=== PATIENT | female | born 1995 | race Caucasian/White ===

== ENCOUNTER 2020-05-06 22:13 | Emergency (ER) | payer OTHER, SELFPAY ==
[2020-05-06 22:22] VITALS: BP 133/89; PULSE 126; RESP 16; TEMP 36.9; O2SAT 100; BMI 19.1
[2020-05-06 22:31] LABS: RBC Urine None Seen (0-5/HPF)
[2020-05-06 22:38] LABS: Bacteria Urine Few (2-10); Culture Indicated Urine Specimen Cultured; Squamous Epithelial Cell Urine 0-1 /HPF (0-5/HPF); WBC Urine 1-5/HPF (0-5/HPF)
--- NOTE | 2020-05-06 23:12 | ED_ITS ---
HPI - General Adult General Chief complaint: Urogenital-Female Stated complaint: thinks UTI Time Seen by Provider: 05/06/20 22:17 Source: patient Mode of arrival: Ambulatory Limitations: no limitations History of Present Illness HPI narrative: 25-year-old female here for evaluation of dysuria, urinary frequency and feeling like she 68 urinary tract infection. Patient states that her symptoms actually started several weeks ago. She was initially seen in outside facility and had a urinalysis performed and was told that she had a urinary tract infection. She was started on Bactrim however after 1 or 2 doses of this she stated that she was not tolerating the medication well. She went back to this outside facility where again she she states that she had a urinalysis performed which did not show urinary tract infection however she states that the provider reviewed the urine culture from her 1st visit and she was told that she had infection. She was started on Keflex. She took this antibiotic for 5 days. States that she started to feel like the symptoms were improving however when she stopped the antibiotic the symptoms returned. She went back to the outside facility where she was told that potentially she had chlamydia. She was given a prescription for azithromycin however because she states she is not concerned about a STI. Here for continued symptoms rate Related Data Previous Rx's Medication Instructions Recorded cephalexin [Keflex] 500 mg PO BID 7 Days #14 cap 05/06/20 Allergies Allergy/AdvReac Type Severity Reaction Status Date / Time No Known Drug Allergies Allergy Verified 05/06/20 22:38 Review of Systems Constitutional Constitutional: Denies fever(s) and Denies headache(s) ENT Ears, Nose, Mouth, and Throat: Denies headache(s) Cardiovascular Cardiovascular: Denies chest pain Genitourinary Genitourinary: Reports dysuria, Reports urinary hesitancy and Reports urinary urgency Genitourinary: Reports dysuria, Reports urinary hesitancy and Reports urinary urgency Integumentary/Breasts Skin/Breast: Denies rash Neurologic Neurologic: Denies headache(s) Hematologic/Lymphatic Hematologic/Lymphatic: Denies easy bleeding and Denies easy bruising Patient History Medical History Healthy adult (Acute) Social History Smoking Status: Never smoker Smoking Status: Never smoker alcohol intake frequency: a few times a week Substance Use Type: does not use Exam Initial Vital Signs Initial Vital Signs: Vital Signs Temperature 98.4 F 05/06/20 22:22 Pulse Rate 126 H 05/06/20 22:22 Respiratory Rate 16 05/06/20 22:22 Blood Pressure 133/89 05/06/20 22:22 Pulse Oximetry 100 05/06/20 22:22 Const General: cooperative and comfortable Limitations: mental status not altered HENMT Head: normal to inspection and normocephalic Cardio Rate: tachycardic Skin Lesions: no lesions Rashes: no rashes Neuro General: patient alert and patient awake Cognition: normal cognition Speech: speech normal Extrem General: normal to inspection Course Orders Ordered: ED Orders 05/06/20 22:19 Chlamydia Gonorrhea PCR -URINE Stat Urine Culture Stat Urine Microscopic Stat Discontinued Medications Cephalexin HCl (Keflex) 500 mg PO NOW ONE Stop: 05/06/20 23:44 Last Admin: 05/06/20 23:46 Dose: 500 mg Documented by: KGALLAG Vital Signs Vital signs: Vital Signs - 8 hr 05/06/20 22:22 05/06/20 23:50 Temperature 98.4 F Pulse Rate 126 H 109 H Respiratory Rate 16 16 Blood Pressure 133/89 136/102 H Pulse Oximetry 100 100 Medical Decision Making Lab Data Lab results reviewed: Yes I reviewed the patient's lab results. Labs: Lab Results 05/06/20 05/06/20 Range/Units 22:19 22:19 Urine RBC None seen (0-5/HPF) Urine WBC 1-5/hpf (0-5/HPF) Ur Squamous Epith Cells 0-1 /hpf (0-5/HPF) Urine Bacteria Few (2-10) H (None) Ur Culture Indicated? Specimen cultured Ur Chlamydia DNA (PCR) Not detected N gonorrhoeae DNA (PCR) Not detected Point of Care Testing Test Results Negative Urine Dip Bedside Urine Glucose 100 mg/dl Bedside Urine Bilirubin - Negative Bedside Urine Ketone - Negative Urine Specific [place] 1.005 Bedside Urine Occult Blood +/- Bedside Urine pH 6.5 Bedside Urine Protein - Negative Bedside Urine Urobilinogen - Negative Bedside Urine Nitrite - Negative Bedside Urine Leukocytes +/- 15 Esterase Point of care testing: Point of Care Testing Test Results Negative Urine Dip Bedside Urine Glucose 100 mg/dl Bedside Urine Bilirubin - Negative Bedside Urine Ketone - Negative Urine Specific [place] 1.005 Bedside Urine Occult Blood +/- Bedside Urine pH 6.5 Bedside Urine Protein - Negative Bedside Urine Urobilinogen - Negative Bedside Urine Nitrite - Negative Bedside Urine Leukocytes +/- 15 Esterase MDM Narrative Medical decision making narrative: I was able to obtain records from her last ED visit where she was given a prescription for the azithromycin. Unfortunately no urine culture or urinalysis results were included in this note. It appears that she did have a gonorrhea and chlamydia test performed however this was also not included in the note. Patient's urinalysis here in the emergency department today does have bacteria and she is having symptoms that are consistent with the UTI. Patient again is convinced that she does not have gonorrhea and chlamydia. With her approval a gonorrhea and chlamydia test was performed which of initially came back negative. It is possible that her urinalysis today is not as convincing has what it could be because she has been on antibiotics. She stated that she did improve after taking the Keflex but then it returned when she completed the course. Plan will be is to place her on a another course of Keflex this time given her 7 days worth of the medication. She is going to hold on the azithromycin. She was given return precautions and follow-up instructions. She expressed understanding and agreement plan. Discharge Plan Departure Patient Disposition: Home Clinical Impression: Dysuria Discharge Date/Time: 05/06/20 23:50 Instructions: DI for Dysuria -- Adult Activity Restrictions/Additional Instructions: A urine culture and a gonorrhea and chlamydia culture were pending at the time of your discharge. You were given a dose of antibiotics here in the ER. The next dose will be tomorrow morning. Take them as directed. Contact her primary provider for follow-up. Prescriptions: New cephalexin [Keflex] 500 mg capsule 500 mg PO BID 7 Days Qty: 14 RF: 0
[2020-05-06] MEDS: cephALEXin 250 MG CAPSULE 500 MG PO (23:46)
[2020-05-06 23:50] VITALS: BP 136/102; PULSE 109; RESP 16; O2SAT 100
[2020-05-07 00:47] LABS: Urine N gonorrhoeae NOT DETECTED
[2020-05-07 00:49] LABS: Urine Chlamydia NOT DETECTED
== END 2020-05-06 23:50 | disposition home or self-care (01) ==
PROVIDERS: Emergency Provider Emergency Medicine
DX: R30.0 Dysuria (principal); Z11.3 Encounter for screening for infections with a predominantly sexual mode of transmission
CPT/HCPCS: 81003; 81015; 81025; 87086; 87491; 87591; 99283

== ENCOUNTER 2020-06-14 05:36 | Emergency (ER) | payer OTHER, SELFPAY ==
[2020-06-14 05:40] VITALS: BP 142/94; PULSE 136; RESP 20; TEMP 36.8; O2SAT 100; BMI 18.4
--- NOTE | 2020-06-14 06:13 | DI.RAD.S_ITS ---
PROCEDURE: XR CHEST 2V INDICATIONS: Palpitations TECHNIQUE: 2 views of the chest were acquired. COMPARISON: None. FINDINGS: Surgical changes and devices: None. Lungs and pleura: Lungs are clear. No pleural effusions or pneumothorax. Mediastinum: Mediastinal contours are normal. Heart size is normal. Bones and chest wall: No suspicious bony abnormalities. Soft tissues appear unremarkable. IMPRESSION: No acute cardiopulmonary disease process. Dictated by: Rosy Prince MD, PhD on 06/14/2020 at 8:07 Approved by: Rosy Prince MD, PhD on 06/14/2020 at 8:07
--- NOTE | 2020-06-14 06:15 | ED.GENADULT ---
HPI - General Adult <Antonio Arzate MD - Last Filed: 06/23/20 07:09> General Chief complaint: Neck Pain/Injury Stated complaint: DIZZY, BACK AND NECK PAIN Time Seen by Provider: 06/14/20 05:56 Source: patient and family Mode of arrival: Ambulatory Limitations: no limitations History of Present Illness HPI narrative: Patient here with . Complains of multiple problems. But mostly she complains of upper spine pain that she has had since 1 years of age with intermittent in frequent discomfort. History of scoliosis. No recent imaging of the spine. Patient also complains of lower pelvic pain that radiates bilaterally to the lower back/laterally. Denies any urinary complaints. Denies . No recent illness nausea vomiting diarrhea fever chills cough cold congestion sore throat. Heart rate noted. Patient states this is very very very common for her. She states her heart at rest averages 100-120. Last visit here May 06, 2020 at 10:22 p.m. and 2350 heart rates were 126 and 109 respectively. Patient states she is very very very anxious. She states she also has history of anxiety in the past and she was on medications that helped. She describes that symptoms this morning are similar to anxiety attacks she has had in the past and now she is no longer on medications for anxiety. In the past she would get dizzy and short of breath at times. Also with palpitations. The 2 problems she describes this morning she is mostly concerned about the dizziness in the upper neck discomfort. The lower abdomen radiating to the back she states does not want to be evaluated for, no pelvic exam, she plans to call her OBGYN today to make an appointment for ultrasound and pelvic exam. She does agree to having urinalysis done. Regarding the dizziness/palpitations and upper neck/upper back discomfort she is agreeable to x-rays and blood work. She states she always has discomfort at the thoracic spine midline at the level of a skin mole. This is at the inferior intrascapular level. It radiates upwards to the base of the cervical spine. Slight discomfort with movement. was trying to use massage ball to alleviate without success. There is no pain or numbness to the limbs. Otherwise no lower back pain. No abdominal pain or chest pain. No syncope. The dizziness occurs when she starts getting worried about the neck and back discomfort otherwise does not occur when not thinking about. In addition she states dizziness is generally worse when her works night manager, she is anxious and feels more dizzy. Concurrently has been is on night manager. He works at the [employer]. On arrival heart rate 136 blood pressure 142/94. EKG ventricular 112. Sinus tachycardia. LMP 3 weeks ago. States she will start in the next couple of days Related Data Home Medications Medication Instructions Recorded Confirmed dextroamphetamine-amphetamine 20 mg PO DAILY 06/16/20 06/16/20 Previous Rx's Medication Instructions Recorded ketorolac 10 mg PO Q6H PRN #14 tab 06/14/20 lidocaine [Lidoderm] 1 patch TOP DAILY #15 each 06/14/20 omeprazole 20 mg PO DAILY 28 Days cap 06/16/20 Allergies Allergy/AdvReac Type Severity Reaction Status Date / Time sulfamethoxazole AdvReac Nausea Verified 06/16/20 04:48 [From Bactrim] trimethoprim [From Bactrim] AdvReac Nausea Verified 06/16/20 04:48 Review of Systems <Antonio Arzate MD - Last Filed: 06/23/20 07:09> Review of Systems Narrative: GENERAL: Denies chills, fatigue, malaise, fever, sweats. HEENT: Denies sinus pain, ear pain, sore throat, difficulty swallowing RESPIRATORY: Complains dyspnea, denies cough CARDIOVASCULAR: Denies chest pain, complains of palpitations, edema, GASTROINTESTINAL: Denies nausea, vomiting, complains of lower abdominal pain, denies diarrhea, constipation, melena. : Denies dysuria, frequency, hematuria MUSCULOSKELETAL: Complains of muscle or bony pain SKIN: Denies rash, skin lesions NEUROLOGIC: Denies weakness, headache, numbness, change in speech, confusion PSYCHIATRIC: No SI or HI or hallucinations, complains of anxiety ROS Unobtainable: All systems reviewed & are unremarkable except as noted in HPI and below Patient History <Antonio Arzate MD - Last Filed: 06/23/20 07:09> Medical History Healthy adult (Acute) Social History Smoking Status: Never smoker Smoking Status: Never smoker alcohol intake frequency: a few times a week Substance Use Type: does not use Exam <Antonio Arzate MD - Last Filed: 06/23/20 07:09> Narrative Exam Narrative: GENERAL: patient appears stated age. Well-nourished, well-developed patient, in no distress, not toxic not dyspneic, patient thin-appearing but otherwise healthy, slightly anxious HEAD: Normocephalic. EYES: Pupils equal round and reactive. No scleral icterus. No injection no discharge ENT: Mucous membranes moist. No drooling no tongue elevation no trismus no malocclusion NECK: Trachea midline. Non tender, no thyromegaly CARDIOVASCULAR: Regular rate and rhythm without murmurs, gallops, or rubs. RESPIRATORY: Clear to auscultation. Breath sounds equal bilaterally. No wheezes, rales, or rhonchi. GASTROINTESTINAL: Abdomen soft, non-tender, nondistended. Bowel sounds present, no peritoneal signs EXTREMITIES: No gross deformities. BACK: Nontender without deformity or crepitance. No flank tenderness. No midline tenderness or step-off at the interscapular thoracic level, superior or inferior to this. No cervical midline tenderness or lumbar midline tenderness or step-off either. Able to flex and extend at the spine without discomfort. NEURO: AOx4. SKIN: Warm and dry PSYCH: Slightly anxious, is cooperative Initial Vital Signs Initial Vital Signs: Vital Signs Temperature 98.2 F 06/14/20 05:40 Pulse Rate 136 H 06/14/20 05:40 Respiratory Rate 20 06/14/20 05:40 Blood Pressure 142/94 H 06/14/20 05:40 Pulse Oximetry 100 06/14/20 05:40 <Geovany Galvan DO - Last Filed: 06/14/20 08:29> Initial Vital Signs Initial Vital Signs: Vital Signs Temperature 98.2 F 06/14/20 05:40 Pulse Rate 136 H 06/14/20 05:40 Respiratory Rate 20 06/14/20 05:40 Blood Pressure 142/94 H 06/14/20 05:40 Pulse Oximetry 100 06/14/20 05:40 Course <Antonio Arzate MD - Last Filed: 06/23/20 07:09> Course Course Narrative: 6:55 a.m. spoke with patient and regarding blood work. Reviewed abnormal D-dimer, patient does not not not want V/Q scan or CT angiogram or any medications today the or any fluids IV. Does not want evaluation for ruling out pulmonary embolism. At this time patient's heart rate is 82 and she is much more calm. 7:[address] galvan, await laboratory study results and imaging results to review with patient, repeating EKG Orders Ordered: ED Orders 06/14/20 06:13 XR chest 2V Stat 06/14/20 06:15 XR cervical spine 2V or 3V Stat XR thoracic spine 2V Stat 06/14/20 06:20 Urine Microscopic Stat 06/14/20 06:25 Complete Blood Count AUTO DIFF Stat Comprehensive Metabolic Panel Stat D Dimer Stat Magnesium Stat Thyroid Stimulating Hormone Stat Troponin & CK Cardiac Panel Stat 06/14/20 07:04 EKG-12 Lead Stat Vital Signs Vital signs: Vital Signs - 8 hr 06/14/20 05:40 06/14/20 06:44 06/14/20 08:01 Temperature 98.2 F Pulse Rate 136 H 90 93 H Respiratory Rate 20 18 18 Blood Pressure 142/94 H 143/97 H 126/86 Pulse Oximetry 100 100 100 <Geovany Galvan DO - Last Filed: 06/14/20 08:29> Course Course Narrative: Patient received in sign-out from Dr. Arzate. I performed an independent history and physical exam and have no significant additions. I have discussed the repeat EKG, diagnostic imaging and labs with the patient and significant other. They have had questions answered to their apparent satisfaction and understand return precautions. Orders Ordered: ED Orders 06/14/20 06:13 XR chest 2V Stat 06/14/20 06:15 XR cervical spine 2V or 3V Stat XR thoracic spine 2V Stat 06/14/20 06:20 Urine Microscopic Stat 06/14/20 06:25 Complete Blood Count AUTO DIFF Stat Comprehensive Metabolic Panel Stat D Dimer Stat Magnesium Stat Thyroid Stimulating Hormone Stat Troponin & CK Cardiac Panel Stat 06/14/20 07:04 EKG-12 Lead Stat Vital Signs Vital signs: Vital Signs - 8 hr 06/14/20 05:40 06/14/20 06:44 06/14/20 08:01 Temperature 98.2 F Pulse Rate 136 H 90 93 H Respiratory Rate 20 18 18 Blood Pressure 142/94 H 143/97 H 126/86 Pulse Oximetry 100 100 100 Medical Decision Making <Antonio Arzate MD - Last Filed: 06/23/20 07:09> Differential Diagnosis Differential Diagnosis: Anxiety/hyperthyroidism/scoliosis/pinched nerve/ovarian cyst/UTI/kidney sto Lab Data Lab results reviewed: Yes I reviewed the patient's lab results. Result diagrams: 06/14/20 06:25 06/14/20 06:25 Labs: Lab Results 06/14/20 06/14/20 06/14/20 Range/Units 06:20 06:25 06:25 WBC 10.0 (4.5-11.0) X10^3/uL RBC 4.26 (4.0-5.2) X10^6/uL Hgb 13.5 (12.0-16.0) g/dL Hct 39.9 (36-46) % MCV 93.5 (80-100) fL MCH 31.6 (26-34) PG MCHC 33.8 (30-36) % RDW 13.4 (11.6-14.8) % Plt Count 296 (150-400) X10^3/uL Neut % (Auto) 62.3 (50-75) % Lymph % (Auto) 32.1 (25-40) % [place] % (Auto) 5.0 (3-14) % Eos % (Auto) 0.2 L (2-4) % Baso % (Auto) 0.4 (0-2) % Neut # (Auto) 6200 (4627-5627) /uL Lymph # (Auto) 3200 (0615-6486) /uL [place] # (Auto) 500 (0-900) /uL Eos # (Auto) 0 (0-450) /uL Baso # (Auto) 0 (0-100) /uL D-Dimer (<230) ng/mL Sodium 137 (137-145) mmol/L Potassium 3.3 L (3.4-5.1) mmol/L Chloride 105 (98-107) mmol/L Carbon Dioxide 24 (22-32) mmol/L BUN 5 L (7-17) mg/dL Creatinine 0.60 (0.52-1.04) mg/dL Estimated GFR > 60.0 (>60) mL/min BUN/Creatinine Ratio 8.3 (6-22) Glucose 98 (70-100) mg/dL Calcium 9.5 (8.4-10.2) mg/dL Magnesium (1.6-2.3) mg/dL Total Bilirubin 0.7 (0.2-1.3) mg/dL AST 23 (14-36) IU/L ALT 13 (<35) IU/L Alkaline Phosphatase 51 (38-126) U/L Total Creatine Kinase (30-135) U/L CK-MB (CK-2) CK-MB (CK-2) Rel Index Troponin I (0.01-0.034) ng/mL Total Protein 7.7 (6.3-8.2) g/dL Albumin 4.2 (3.5-5.0) g/dL Globulin 3.5 (1.7-4.1) g/dL Albumin/Globulin Ratio 1.2 (1.0-2.8) TSH (0.47-4.68) uIU/mL Urine RBC 0-1/hpf (0-5/HPF) Urine WBC 0-1/hpf (0-5/HPF) Ur Squamous Epith Cells 0-1 /hpf (0-5/HPF) Urine Bacteria Occasional (0-1) (None) Ur Culture Indicated? Cult not indicated 06/14/20 06/14/20 06/14/20 Range/Units 06:25 06:25 06:25 WBC (4.5-11.0) X10^3/uL RBC (4.0-5.2) X10^6/uL Hgb (12.0-16.0) g/dL Hct (36-46) % MCV (80-100) fL MCH (26-34) PG MCHC (30-36) % RDW (11.6-14.8) % Plt Count (150-400) X10^3/uL Neut % (Auto) (50-75) % Lymph % (Auto) (25-40) % [place] % (Auto) (3-14) % Eos % (Auto) (2-4) % Baso % (Auto) (0-2) % Neut # (Auto) (3934-7600) /uL Lymph # (Auto) (6404-3441) /uL [place] # (Auto) (0-900) /uL Eos # (Auto) (0-450) /uL Baso # (Auto) (0-100) /uL D-Dimer 257 H (<230) ng/mL Sodium (137-145) mmol/L Potassium (3.4-5.1) mmol/L Chloride (98-107) mmol/L Carbon Dioxide (22-32) mmol/L BUN (7-17) mg/dL Creatinine (0.52-1.04) mg/dL Estimated GFR (>60) mL/min BUN/Creatinine Ratio (6-22) Glucose (70-100) mg/dL Calcium (8.4-10.2) mg/dL Magnesium 1.7 (1.6-2.3) mg/dL Total Bilirubin (0.2-1.3) mg/dL AST (14-36) IU/L ALT (<35) IU/L Alkaline Phosphatase (38-126) U/L Total Creatine Kinase 56 (30-135) U/L CK-MB (CK-2) TNP CK-MB (CK-2) Rel Index TNP Troponin I < 0.012 (0.01-0.034) ng/mL Total Protein (6.3-8.2) g/dL Albumin (3.5-5.0) g/dL Globulin (1.7-4.1) g/dL Albumin/Globulin Ratio (1.0-2.8) TSH 4.77 H (0.47-4.68) uIU/mL Urine RBC (0-5/HPF) Urine WBC (0-5/HPF) Ur Squamous Epith Cells (0-5/HPF) Urine Bacteria (None) Ur Culture Indicated? Point of Care Testing Test Results Negative Urine Dip Bedside Urine Glucose Negative Bedside Urine Bilirubin - Negative Bedside Urine Ketone - Negative Urine Specific [place] 1.010 Bedside Urine Occult Blood +/- Bedside Urine pH 6.5 Bedside Urine Protein - Negative Bedside Urine Urobilinogen - Negative Bedside Urine Nitrite - Negative Bedside Urine Leukocytes - Negative Esterase Point of care testing: Point of Care Testing Test Results Negative Urine Dip Bedside Urine Glucose Negative Bedside Urine Bilirubin - Negative Bedside Urine Ketone - Negative Urine Specific [place] 1.010 Bedside Urine Occult Blood +/- Bedside Urine pH 6.5 Bedside Urine Protein - Negative Bedside Urine Urobilinogen - Negative Bedside Urine Nitrite - Negative Bedside Urine Leukocytes - Negative Esterase ECG Data Attestation: I personally reviewed and interpreted this ECG as follows: Interpretation: Sinus tachycardia, rate 112, possible left atrial enlargement, incomplete right bundle-branch block. Diffuse ST depression MDM Narrative Medical decision making narrative: Appropriate for discharge home. Heart rate resolved spontaneously without any intervention with medications. Heart rate 82 and patient much more relaxed. Symptoms are chronic and do have situational settings that triggers dizziness or palpitations or dyspnea. being on night manager and when she thinks about her chronic upper back pain has dizziness or palpitations or dyspnea. She does not not want any IV fluids or further testing. No CT scans no pelvic exam <Geovany Galvan, - Last Filed: 06/14/20 08:29> Lab Data Labs: Lab Results 06/14/20 06/14/20 06/14/20 Range/Units 06:20 06:25 06:25 WBC 10.0 (4.5-11.0) X10^3/uL RBC 4.26 (4.0-5.2) X10^6/uL Hgb 13.5 (12.0-16.0) g/dL Hct 39.9 (36-46) % MCV 93.5 (80-100) fL MCH 31.6 (26-34) PG MCHC 33.8 (30-36) % RDW 13.4 (11.6-14.8) % Plt Count 296 (150-400) X10^3/uL Neut % (Auto) 62.3 (50-75) % Lymph % (Auto) 32.1 (25-40) % [place] % (Auto) 5.0 (3-14) % Eos % (Auto) 0.2 L (2-4) % Baso % (Auto) 0.4 (0-2) % Neut # (Auto) 6200 (4112-5223) /uL Lymph # (Auto) 3200 (8248-8592) /uL [place] # (Auto) 500 (0-900) /uL Eos # (Auto) 0 (0-450) /uL Baso # (Auto) 0 (0-100) /uL D-Dimer (<230) ng/mL Sodium 137 (137-145) mmol/L Potassium 3.3 L (3.4-5.1) mmol/L Chloride 105 (98-107) mmol/L Carbon Dioxide 24 (22-32) mmol/L BUN 5 L (7-17) mg/dL Creatinine 0.60 (0.52-1.04) mg/dL Estimated GFR > 60.0 (>60) mL/min BUN/Creatinine Ratio 8.3 (6-22) Glucose 98 (70-100) mg/dL Calcium 9.5 (8.4-10.2) mg/dL Magnesium (1.6-2.3) mg/dL Total Bilirubin 0.7 (0.2-1.3) mg/dL AST 23 (14-36) IU/L ALT 13 (<35) IU/L Alkaline Phosphatase 51 (38-126) U/L Total Creatine Kinase (30-135) U/L CK-MB (CK-2) CK-MB (CK-2) Rel Index Troponin I (0.01-0.034) ng/mL Total Protein 7.7 (6.3-8.2) g/dL Albumin 4.2 (3.5-5.0) g/dL Globulin 3.5 (1.7-4.1) g/dL Albumin/Globulin Ratio 1.2 (1.0-2.8) TSH (0.47-4.68) uIU/mL Urine RBC 0-1/hpf (0-5/HPF) Urine WBC 0-1/hpf (0-5/HPF) Ur Squamous Epith Cells 0-1 /hpf (0-5/HPF) Urine Bacteria Occasional (0-1) (None) Ur Culture Indicated? Cult not indicated 06/14/20 06/14/20 06/14/20 Range/Units 06:25 06:25 06:25 WBC (4.5-11.0) X10^3/uL RBC (4.0-5.2) X10^6/uL Hgb (12.0-16.0) g/dL Hct (36-46) % MCV (80-100) fL MCH (26-34) PG MCHC (30-36) % RDW (11.6-14.8) % Plt Count (150-400) X10^3/uL Neut % (Auto) (50-75) % Lymph % (Auto) (25-40) % [place] % (Auto) (3-14) % Eos % (Auto) (2-4) % Baso % (Auto) (0-2) % Neut # (Auto) (9542-9360) /uL Lymph # (Auto) (0147-4900) /uL [place] # (Auto) (0-900) /uL Eos # (Auto) (0-450) /uL Baso # (Auto) (0-100) /uL D-Dimer 257 H (<230) ng/mL Sodium (137-145) mmol/L Potassium (3.4-5.1) mmol/L Chloride (98-107) mmol/L Carbon Dioxide (22-32) mmol/L BUN (7-17) mg/dL Creatinine (0.52-1.04) mg/dL Estimated GFR (>60) mL/min BUN/Creatinine Ratio (6-22) Glucose (70-100) mg/dL Calcium (8.4-10.2) mg/dL Magnesium 1.7 (1.6-2.3) mg/dL Total Bilirubin (0.2-1.3) mg/dL AST (14-36) IU/L ALT (<35) IU/L Alkaline Phosphatase (38-126) U/L Total Creatine Kinase 56 (30-135) U/L CK-MB (CK-2) TNP CK-MB (CK-2) Rel Index TNP Troponin I < 0.012 (0.01-0.034) ng/mL Total Protein (6.3-8.2) g/dL Albumin (3.5-5.0) g/dL Globulin (1.7-4.1) g/dL Albumin/Globulin Ratio (1.0-2.8) TSH 4.77 H (0.47-4.68) uIU/mL Urine RBC (0-5/HPF) Urine WBC (0-5/HPF) Ur Squamous Epith Cells (0-5/HPF) Urine Bacteria (None) Ur Culture Indicated? Point of Care Testing Test Results Negative Urine Dip Bedside Urine Glucose Negative Bedside Urine Bilirubin - Negative Bedside Urine Ketone - Negative Urine Specific [place] 1.010 Bedside Urine Occult Blood +/- Bedside Urine pH 6.5 Bedside Urine Protein - Negative Bedside Urine Urobilinogen - Negative Bedside Urine Nitrite - Negative Bedside Urine Leukocytes - Negative Esterase Point of care testing: Point of Care Testing Test Results Negative Urine Dip Bedside Urine Glucose Negative Bedside Urine Bilirubin - Negative Bedside Urine Ketone - Negative Urine Specific [place] 1.010 Bedside Urine Occult Blood +/- Bedside Urine pH 6.5 Bedside Urine Protein - Negative Bedside Urine Urobilinogen - Negative Bedside Urine Nitrite - Negative Bedside Urine Leukocytes - Negative Esterase Imaging Data Chest x-ray: Radiologist's Impression: Minerva Hamilton 25 F [address] [address] XRay Report Signed Patient: Evert Hamilton#: [id number] : 1995Acct:[id number] Age/Sex: 25 / FDate of Service: 06/14/20 Loc: ED Accession Number: [id number] Procedure: XR chest 2V Ordering Provider: Antonio Arzate MD PROCEDURE: XR CHEST 2V INDICATIONS: Palpitations TECHNIQUE: 2 views of the chest were acquired. COMPARISON: None. FINDINGS: Surgical changes and devices: None. Lungs and pleura: Lungs are clear. No pleural effusions or pneumothorax. Mediastinum: Mediastinal contours are normal. Heart size is normal. Bones and chest wall: No suspicious bony abnormalities. Soft tissues appear unremarkable. IMPRESSION: No acute cardiopulmonary disease process. Dictated by: Rosy Prince MD, PhD on 06/14/2020 at 8:07 Approved by: Rosy Prince MD, PhD on 06/14/2020 at 8:07 Xray C Spine / T Spine: Radiologist's Impression: [address] [address] XRay Report Signed Patient: Evert Hamilton#: [id number] : 1995Acct:[id number] Age/Sex: 25 / FDate of Service: 06/14/20 Loc: ED Accession Number: [id number] Procedure: XR cervical spine 2V or 3V Ordering Provider: Antonio Arzate MD PROCEDURE: XR CERVICAL SPINE 2V OR 3V INDICATIONS: Pain TECHNIQUE: 3 view(s) of the cervical spine were acquired. COMPARISON: None. FINDINGS: Bones: No fractures or dislocations to the T2 level. The lateral masses of C1 appear intact on the odontoid view. No suspicious bony lesions. Soft tissues: No prevertebral soft tissue swelling. IMPRESSION: No fracture. No acute osseous lesion. If symptoms and/or clinical suspicion for pathology persists, evaluation with MRI may be helpful for further assessment. Dictated by: Rosy Prince MD, PhD on 06/14/2020 at 8:08 Approved by: Rosy Prince MD, PhD on 06/14/2020 at 8:09 Minerva Hamilton 25 F [address] [address] XRay Report Signed Patient: Minerva HamiltonMR#: [id number] : 1995Acct:[id number] Age/Sex: 25 / FDate of Service: 06/14/20 Loc: ED Accession Number: [id number] Procedure: XR thoracic spine 2V Ordering Provider: Antonio Arzate MD PROCEDURE: XR THORACIC SPINE 2V INDICATIONS: Pain TECHNIQUE: To views of the thoracic spine were acquired. COMPARISON: None. FINDINGS: Bones: No fractures or dislocations. No suspicious bony lesions. Twelve pairs of ribs are noted, and appear intact where visualized. Soft tissues: No paravertebral stripe thickening. IMPRESSION: No fracture. No acute osseous lesion. If symptoms and/or clinical suspicion for pathology persists, evaluation with MRI may be helpful for further assessment. Dictated by: Rosy Prince MD, PhD on 06/14/2020 at 8:07 Approved by: Rosy Prince MD, PhD on 06/14/2020 at 8:08 Discharge Plan Departure Patient Disposition: Home Clinical Impression: Anxiety, Chronic high back pain Discharge Date/Time: 06/14/20 08:28 Instructions: Generalized Anxiety Disorder, DI for Anxiety -- Adult, DI for Panic Disorder, DI for Thoracic Back Pain Activity Restrictions/Additional Instructions: See your doctor has your plan to call today for your OBGYN for evaluation of your lower abdominal pain. See family doctor for recheck within a week for evaluation for anxiety and possibly restarting anxiety medications. Return if worse or if any questions concerns. Prescriptions: New ketorolac 10 mg tablet 10 mg PO Q6H PRN (Reason: pain) Qty: 14 RF: 0 lidocaine [Lidoderm] 5 % adhesive patch,medicated 1 patch TOP DAILY Qty: 15 RF: 0 No Action omeprazole 20 mg capsule,delayed release(DR/EC) 20 mg PO DAILY 28 Days RF: 0 dextroamphetamine-amphetamine 20 mg PO DAILY RF: 0
[2020-06-14 06:39] LABS: Add Manual Diff / Slide Review NO; Basophils Absolute Auto 0 /uL (0-100); Basophils Percent Auto 0.4 % (0-2); Eosinophils Absolute Auto 0 /uL (0-450); Eosinophils Percent Auto 0.2 % (2-4); Hematocrit 39.9 % (36-46); Hemoglobin 13.5 g/dL (12.0-16.0); Lymphocytes Absolute Auto 3200 /uL (1100-4500); Lymphocytes Percent Auto 32.1 % (25-40); Mean Corpuscular HGB Conc 33.8 % (30-36); Mean Corpuscular Hemoglobin 31.6 PG (26-34); Mean Corpuscular Volume 93.5 fL (80-100); Monocytes Absolute Auto 500 /uL (0-900); Neutrophils Absolute Auto 6200 /uL (1500-7000); Neutrophils Percent Auto 62.3 % (50-75); Platelet Count 296 X10^3/uL (150-400); Red Blood Cell Count 4.26 X10^6/uL (4.0-5.2); Red Cell Distribution Width 13.4 % (11.6-14.8)
[2020-06-14 06:44] VITALS: BP 143/97; PULSE 90; RESP 18; O2SAT 100
[2020-06-14 06:47] LABS: D Dimer 257 ng/mL (<230)
[2020-06-14 06:48] LABS: Creatine Kinase 56 U/L (30-135); Magnesium 1.7 mg/dL (1.6-2.3)
[2020-06-14 06:50] LABS: Alanine Aminotransferase 13 IU/L (<35); Albumin 4.2 g/dL (3.5-5.0); Albumin Globulin Ratio 1.2 (1.0-2.8); Alkaline Phosphatase 51 U/L (38-126); Aspartate Aminotransferase 23 IU/L (14-36); BUN Creatinine Ratio 8.3 (6-22); Bilirubin Total 0.7 mg/dL (0.2-1.3); Blood Urea Nitrogen 5 mg/dL (7-17); Calcium 9.5 mg/dL (8.4-10.2); Carbon Dioxide 24 mmol/L (22-32); Chloride 105 mmol/L (98-107); Estimated Glomerular Filt Rate > 60.0 mL/min (>60); Globulin 3.5 g/dL (1.7-4.1); Glucose 98 mg/dL (70-100); HEMOLYSIS < 15 (0-50); Potassium 3.3 mmol/L (3.4-5.1); Sodium 137 mmol/L (137-145); Total Protein 7.7 g/dL (6.3-8.2)
[2020-06-14 07:01] LABS: Troponin I < 0.012 ng/mL (0.01-0.034)
[2020-06-14 07:13] LABS: Bacteria Urine Occasional (0-1); RBC Urine 0-1/HPF (0-5/HPF); Squamous Epithelial Cell Urine 0-1 /HPF (0-5/HPF); WBC Urine 0-1/HPF (0-5/HPF)
[2020-06-14 07:14] LABS: Culture Indicated Urine Cult Not Indicated
[2020-06-14 07:27] LABS: Thyroid Stimulating Hormone 4.77 uIU/mL (0.47-4.68)
[2020-06-14 08:01] VITALS: BP 126/86; PULSE 93; RESP 18; O2SAT 100
== END 2020-06-14 08:28 | disposition home or self-care (01) ==
PROVIDERS: Emergency Medicine; Emergency Provider Emergency Medicine
DX: F41.9 Anxiety disorder, unspecified (principal); M54.6 Pain in thoracic spine; R10.2 Pelvic and perineal pain; M54.5 Low back pain; R00.2 Palpitations; M54.2 Cervicalgia
CPT/HCPCS: 36415; 71046; 72040; 72070; 80053; 81003; 81015; 81025; 82550; 83735; 84443; 84484; 85025; 85379; 93005; 93010; 99284

== ENCOUNTER 2020-06-16 04:37 | Emergency (ER) | payer OTHER, SELFPAY ==
[2020-06-16] VITALS (7 sets, daily range): BP systolic 134–144; BP diastolic 86–99; PULSE 80–104; RESP 18; TEMP 36.7; O2SAT 98–100; BMI 18.4
[2020-06-16] MEDS: MAG HYDROX/ALUMINUM/SIMETH SUS 20 ML, LIDOCAINE VISCOUS 2% 15 ML PO (05:14)
--- NOTE | 2020-06-16 05:35 | ED.ABDPAIN ---
HPI - Abdominal Pain General Chief Complaint: Abdominal Pain Stated Complaint: Burning and pain in stomach Time Seen by Provider: 06/16/20 04:51 Source: patient and family Mode of arrival: Ambulatory Limitations: no limitations History of Present Illness HPI narrative: The patient presents with epigastric pain that started yesterday morning. She is taking Pepto-Bismol and Gaviscon, discomfort continues. She has no associated nausea vomiting. She has no diarrhea. Her LMP was about 3 weeks ago, she doubts . She has no dysuria. Additionally she has no chest pain, cough, or dyspnea. She has no current back pain. She was seen here earlier this month with a complex discussion of back pain, noting a history of scoliosis. In addition to the back pain there was an extensive discussion of anxiety. She has a prior history of treatment for anxiety, she is currently not on anxiety medications. Last month she was seen here with a diagnosis dysuria, noting many urinary tract infections in her life. She has no such complaints tonight. Regarding the epigastric pain, she has no history of hiatal hernia, GERD, pancreatitis, gastritis or ulcer. She is not drinking single amounts of alcohol, she does not use drugs. Related Data Previous Rx's Medication Instructions Recorded ketorolac 10 mg PO Q6H PRN #14 tab 06/14/20 lidocaine [Lidoderm] 1 patch TOP DAILY #15 each 06/14/20 omeprazole 20 mg PO DAILY 28 Days cap 06/16/20 Allergies Allergy/AdvReac Type Severity Reaction Status Date / Time sulfamethoxazole AdvReac Nausea Verified 06/16/20 04:48 [From Bactrim] trimethoprim [From Bactrim] AdvReac Nausea Verified 06/16/20 04:48 Review of Systems Constitutional Constitutional: Denies body ache(s), Denies chills, Denies fatigue, Denies fever(s) and Denies headache(s) ENT Ears, Nose, Mouth, and Throat: Denies headache(s) and Denies sore throat Cardiovascular Cardiovascular: Denies chest pain, Denies edema and Denies dyspnea Respiratory Respiratory: Denies cough, Denies dyspnea and Denies wheezing Gastrointestinal Gastrointestinal: Reports abdominal pain, Denies change in bowel habits, Denies diarrhea, Denies nausea and Denies vomiting Genitourinary Genitourinary: Denies dysuria Genitourinary: Denies dysuria Comments: LMP about 3 weeks ago. Musculoskeletal Musculoskeletal: Denies back pain Integumentary/Breasts Skin/Breast: Denies pruritus, Denies erythema, Denies rash and Denies wounds Neurologic Neurologic: Denies headache(s) Endocrine Endocrine: Denies fatigue and Denies flushing Allergic/Immunologic Allergic/Immunologic: Denies wheezing Patient History Medical History (Updated 06/16/20 @ 07:14 by Saeid Franco MD) Anxiety (Acute) Healthy adult (Acute) Social History Smoking Status: Never smoker Smoking Status: Never smoker alcohol intake frequency: a few times a month Substance Use Type: does not use Exam Initial Vital Signs Initial Vital Signs: Vital Signs Temperature 98.1 F 06/16/20 04:48 Pulse Rate 104 H 06/16/20 04:48 Respiratory Rate 18 06/16/20 04:48 Blood Pressure 144/98 H 06/16/20 04:48 Pulse Oximetry 100 06/16/20 04:48 Const General: cooperative and well developed Nutritional Appearance: well nourished HENPA Mouth: oral mucosae normal Throat: posterior oropharynx normal Eyes Pupils: PERRL EOM: EOM intact bilaterally Resp Effort & Inspection: normal respiratory effort and able to speak in complete sentences Auscultation: clear to auscultation bilaterally, no rales, no rhonchi and no wheezes Cardio Rate: regular rate Rhythm: regular rhythm Pulses: normal peripheral pulses GI Other: Epigastric abdominal pain. No distension. Normal bowel sounds. No masses. Back/Spine/Pelvis Back: No CVA tenderness Skin General: no rashes or lesions noted, No jaundice and No petechiae Neuro General: patient alert, patient oriented x3, gait normal and no focal motor deficits Speech: speech normal Extrem General: full ROM, no pedal edema and no calf tenderness Course Course Course Narrative: The patient's epigastric pain showed improvement with the GI cocktail. Protonix was given. The no significant treatment was given her Ativan. She is now relaxed and pain-free. Labs are reassuring. She had a slightly elevated D-dimer upon her last visit, a repeat D-dimer is normal. Her medical record is incomplete. She is on Adderall for ADD. She is discharged home on Prilosec. I have advised her to follow up her PCM for management of anxiety disorder. Orders Ordered: ED Orders 06/16/20 05:39 Complete Blood Count AUTO DIFF Stat Comprehensive Metabolic Panel Stat D Dimer Stat Lipase Stat 06/16/20 05:45 Urinalysis and Microscopic Stat 06/16/20 06:44 Urine Drug Screen, Rapid Stat Discontinued Medications Al Hydrox/Mg Hydrox/Simethicone 20 ml/ Lidocaine HCl 15 ml 0 ml PO NOW ONE Stop: 06/16/20 05:09 Last Admin: 06/16/20 05:14 Dose: 20 ml Documented by: GOLD Sodium Chloride (Normal Saline 0.9%) 1,000 mls @ 1,000 mls/hr IV BOLUS ONE Stop: 06/16/20 06:34 Last Infusion: 06/16/20 07:02 Dose: 0 mls/hr Documented by: Admin: 06/16/20 05:45 Dose: 1,000 mls/hr Documented by: GOLD Lorazepam (Ativan) 1 mg IV NOW ONE Stop: 06/16/20 05:54 Last Admin: 06/16/20 06:44 Dose: 1 mg Documented by: GOLD Pantoprazole Sodium (Protonix) 40 mg IV NOW ONE Stop: 06/16/20 05:36 Last Admin: 06/16/20 05:45 Dose: 40 mg Documented by: GOLD Vital Signs Vital signs: Vital Signs - 8 hr 06/16/20 04:48 06/16/20 05:09 06/16/20 05:30 Temperature 98.1 F Pulse Rate 104 H 90 84 Respiratory Rate 18 Blood Pressure 144/98 H 134/97 H 134/96 H Pulse Oximetry 100 100 100 06/16/20 06:00 06/16/20 06:30 06/16/20 06:47 Temperature Pulse Rate 80 93 H 91 H Respiratory Rate Blood Pressure 144/94 H 140/86 139/87 Pulse Oximetry 99 100 98 06/16/20 07:00 Temperature Pulse Rate 87 Respiratory Rate Blood Pressure 137/99 H Pulse Oximetry 100 MDM - Abdominal Pain Lab Data Result diagrams: 06/16/20 05:39 06/16/20 05:39 Labs: Lab Results 06/16/20 06/16/20 06/16/20 Range/Units 05:39 05:39 05:39 WBC 9.2 (4.5-11.0) X10^3/uL RBC 4.24 (4.0-5.2) X10^6/uL Hgb 13.4 (12.0-16.0) g/dL Hct 39.9 (36-46) % MCV 94.2 (80-100) fL MCH 31.6 (26-34) PG MCHC 33.6 (30-36) % RDW 13.4 (11.6-14.8) % Plt Count 302 (150-400) X10^3/uL Neut % (Auto) 53.2 (50-75) % Lymph % (Auto) 40.3 H (25-40) % [place] % (Auto) 5.0 (3-14) % Eos % (Auto) 0.7 L (2-4) % Baso % (Auto) 0.8 (0-2) % Neut # (Auto) 4900 (3944-0390) /uL Lymph # (Auto) 3700 (1099-4198) /uL [place] # (Auto) 500 (0-900) /uL Eos # (Auto) 100 (0-450) /uL Baso # (Auto) 100 (0-100) /uL D-Dimer 216 (<230) ng/mL Sodium 137 (137-145) mmol/L Potassium 4.0 (3.4-5.1) mmol/L Chloride 105 (98-107) mmol/L Carbon Dioxide 26 (22-32) mmol/L BUN 8 (7-17) mg/dL Creatinine 0.60 (0.52-1.04) mg/dL Estimated GFR > 60.0 (>60) mL/min BUN/Creatinine Ratio 13.3 (6-22) Glucose 91 (70-100) mg/dL Calcium 9.1 (8.4-10.2) mg/dL Total Bilirubin 0.7 (0.2-1.3) mg/dL AST 27 (14-36) IU/L ALT 13 (<35) IU/L Alkaline Phosphatase 42 (38-126) U/L Total Protein 7.7 (6.3-8.2) g/dL Albumin 4.2 (3.5-5.0) g/dL Globulin 3.5 (1.7-4.1) g/dL Albumin/Globulin Ratio 1.2 (1.0-2.8) Lipase 111 (23-300) U/L Urine Color Urine Appearance Urine pH (4.5-8.0) Ur Specific [place] (1.000-1.035) Urine Protein (Negative) Urine Glucose (UA) (Negative) g/dL Urine Ketones (NEGATIVE) Urine Occult Blood (Negative) Urine Nitrate (Negative) Urine Bilirubin (NEGATIVE) Urine Urobilinogen (0.2) E.U./dL Ur Leukocyte Esterase (NEGATIVE) Urine RBC (0-5/HPF) Urine WBC (0-5/HPF) Ur Squamous Epith Cells (0-5/HPF) Calcium Oxalate Crystal Urine Bacteria (None) Ur Culture Indicated? Micro UA Comment U Opiates 300ng/mL cut (Negative) Ur Oxycodone Screen (Negative) Urine Methadone Screen (Negative) Ur Barbiturates Screen (Negative) U Tricyclic Antidepress (Negative) Ur Phencyclidine Scrn (Negative) Ur Amphetamines Screen (Negative) U Methamphetamines Scrn (Negative) Ur MDMA Scrn (Ecstasy) (Negative) U Benzodiazepines Scrn (Negative) Urine Cocaine Screen (Negative) U Marijuana (THC) Screen (Negative) 06/16/20 06/16/20 Range/Units 05:45 06:44 WBC (4.5-11.0) X10^3/uL RBC (4.0-5.2) X10^6/uL Hgb (12.0-16.0) g/dL Hct (36-46) % MCV (80-100) fL MCH (26-34) PG MCHC (30-36) % RDW (11.6-14.8) % Plt Count (150-400) X10^3/uL Neut % (Auto) (50-75) % Lymph % (Auto) (25-40) % [place] % (Auto) (3-14) % Eos % (Auto) (2-4) % Baso % (Auto) (0-2) % Neut # (Auto) (0021-0859) /uL Lymph # (Auto) (1564-5815) /uL [place] # (Auto) (0-900) /uL Eos # (Auto) (0-450) /uL Baso # (Auto) (0-100) /uL D-Dimer (<230) ng/mL Sodium (137-145) mmol/L Potassium (3.4-5.1) mmol/L Chloride (98-107) mmol/L Carbon Dioxide (22-32) mmol/L BUN (7-17) mg/dL Creatinine (0.52-1.04) mg/dL Estimated GFR (>60) mL/min BUN/Creatinine Ratio (6-22) Glucose (70-100) mg/dL Calcium (8.4-10.2) mg/dL Total Bilirubin (0.2-1.3) mg/dL AST (14-36) IU/L ALT (<35) IU/L Alkaline Phosphatase (38-126) U/L Total Protein (6.3-8.2) g/dL Albumin (3.5-5.0) g/dL Globulin (1.7-4.1) g/dL Albumin/Globulin Ratio (1.0-2.8) Lipase (23-300) U/L Urine Color Yellow Urine Appearance Clear Urine pH 6.5 (4.5-8.0) Ur Specific [place] 1.025 (1.000-1.035) Urine Protein 1+ H (Negative) Urine Glucose (UA) Negative (Negative) g/dL Urine Ketones Trace H (NEGATIVE) Urine Occult Blood 1+ H (Negative) Urine Nitrate Negative (Negative) Urine Bilirubin Negative (NEGATIVE) Urine Urobilinogen 0.2 (0.2) E.U./dL Ur Leukocyte Esterase Negative (NEGATIVE) Urine RBC 1-5/hpf (0-5/HPF) Urine WBC 0-1/hpf (0-5/HPF) Ur Squamous Epith Cells 1-5 /hpf (0-5/HPF) Calcium Oxalate Crystal Occasional H Urine Bacteria Moderate (10-30) H (None) Ur Culture Indicated? Cult not indicated Micro UA Comment U Opiates 300ng/mL cut Negative (Negative) Ur Oxycodone Screen Negative (Negative) Urine Methadone Screen Negative (Negative) Ur Barbiturates Screen Negative (Negative) U Tricyclic Antidepress Negative (Negative) Ur Phencyclidine Scrn Negative (Negative) Ur Amphetamines Screen Positive H (Negative) U Methamphetamines Scrn Negative (Negative) Ur MDMA Scrn (Ecstasy) Negative (Negative) U Benzodiazepines Scrn Negative (Negative) Urine Cocaine Screen Negative (Negative) U Marijuana (THC) Screen Negative (Negative) Point of care testing: Urine Dip Bedside Urine Glucose Negative Bedside Urine Bilirubin + 1 Bedside Urine Ketone - Negative Urine Specific [place] 1.025 Bedside Urine Occult Blood + Bedside Urine pH 6 Bedside Urine Protein + 30 Bedside Urine Urobilinogen - Negative Bedside Urine Nitrite - Negative Bedside Urine Leukocytes - Negative Esterase Discharge Plan Departure Patient Disposition: Home Clinical Impression: Abdominal pain, epigastric, Anxiety Instructions: DI for Gastritis, DI for Epigastric Pain Activity Restrictions/Additional Instructions: Prilosec 1 tablet daily for abdominal pain. Follow-up with your provider, discuss ongoing treatment for anxiety. Return to a local ER as necessary. Prescriptions: New omeprazole 20 mg capsule,delayed release(DR/EC) 20 mg PO DAILY 28 Days RF: 0 No Action ketorolac 10 mg tablet 10 mg PO Q6H PRN (Reason: pain) Qty: 14 RF: 0 lidocaine [Lidoderm] 5 % adhesive patch,medicated 1 patch TOP DAILY Qty: 15 RF: 0
[2020-06-16] MEDS: PANTOPRAZOLE 40 MG VIAL IV (05:45)
[2020-06-16] MEDS: SODIUM CHLORIDE 0.9% 1,000 ML 1000 ML IV (05:45)
[2020-06-16 05:49] LABS: Add Manual Diff / Slide Review NO; Basophils Absolute Auto 100 /uL (0-100); Basophils Percent Auto 0.8 % (0-2); Eosinophils Absolute Auto 100 /uL (0-450); Eosinophils Percent Auto 0.7 % (2-4); Hematocrit 39.9 % (36-46); Hemoglobin 13.4 g/dL (12.0-16.0); Lymphocytes Absolute Auto 3700 /uL (1100-4500); Lymphocytes Percent Auto 40.3 % (25-40); Mean Corpuscular HGB Conc 33.6 % (30-36); Mean Corpuscular Hemoglobin 31.6 PG (26-34); Mean Corpuscular Volume 94.2 fL (80-100); Monocytes Absolute Auto 500 /uL (0-900); Neutrophils Absolute Auto 4900 /uL (1500-7000); Neutrophils Percent Auto 53.2 % (50-75); Platelet Count 302 X10^3/uL (150-400); Red Blood Cell Count 4.24 X10^6/uL (4.0-5.2); Red Cell Distribution Width 13.4 % (11.6-14.8); White Blood Cell Count 9.2 X10^3/uL (4.5-11.0)
[2020-06-16 05:57] LABS: Alanine Aminotransferase 13 IU/L (<35); Albumin 4.2 g/dL (3.5-5.0); Albumin Globulin Ratio 1.2 (1.0-2.8); Alkaline Phosphatase 42 U/L (38-126); Aspartate Aminotransferase 27 IU/L (14-36); BUN Creatinine Ratio 13.3 (6-22); Bilirubin Total 0.7 mg/dL (0.2-1.3); Blood Urea Nitrogen 8 mg/dL (7-17); Calcium 9.1 mg/dL (8.4-10.2); Carbon Dioxide 26 mmol/L (22-32); Chloride 105 mmol/L (98-107); Estimated Glomerular Filt Rate > 60.0 mL/min (>60); Globulin 3.5 g/dL (1.7-4.1); Glucose 91 mg/dL (70-100); HEMOLYSIS 61 (0-50); Lipase 111 U/L (23-300); Sodium 137 mmol/L (137-145); Total Protein 7.7 g/dL (6.3-8.2)
[2020-06-16 06:07] LABS: Appearance Urine UA CLEAR; Bilirubin Urine UA NEGATIVE (NEGATIVE); Color Urine UA YELLOW; Glucose Urine UA NEGATIVE (Negative); Ketones Urine UA TRACE (NEGATIVE); Leukocyte Esterase Urine UA NEGATIVE (NEGATIVE); Nitrite Urine UA NEGATIVE (Negative); Occult Blood Urine UA 1+ (Negative); Protein Urine UA 1+ (Negative); Specific Gravity Urine UA 1.025 (1.000-1.035); Urobilinogen Urine UA 0.2 E.U./dL (0.2)
[2020-06-16 06:11] LABS: pH Urine UA 6.5 (4.5-8.0)
[2020-06-16 06:27] LABS: D Dimer 216 ng/mL (<230)
[2020-06-16 06:33] LABS: RBC Urine 1-5/HPF (0-5/HPF); Squamous Epithelial Cell Urine 1-5 /HPF (0-5/HPF); WBC Urine 0-1/HPF (0-5/HPF)
[2020-06-16 06:34] LABS: Bacteria Urine Moderate (10-30); Calcium Oxalate Crystals Urine Occasional
[2020-06-16 06:37] LABS: Culture Indicated Urine Cult Not Indicated
[2020-06-16] MEDS: LORazepam 2 MG/ML INJ 1 MG IV (06:44)
[2020-06-16 06:57] LABS: Ur Creatinine 20 (Normal); Ur Specific Gravity 1.015 (Normal)
[2020-06-16 06:58] LABS: UR Morphine/Opiate cutoff 300 Negative (Negative); Urine Amphetamines Positive (Negative); Urine Barbiturates Negative (Negative); Urine Benzodiazepines Negative (Negative); Urine Cocaine Negative (Negative); Urine MDMA Negative (Negative); Urine Methadone Negative (Negative); Urine Methamphetamines Negative (Negative); Urine Oxycodone Negative (Negative); Urine Phencyclidine Negative (Negative); Urine Tetrahydrocannabinol Negative (Negative); Urine Tricyclic Antidepressant Negative (Negative); Urine pH 5 (Normal)
== END 2020-06-16 07:25 | disposition home or self-care (01) ==
PROVIDERS: Emergency Provider Emergency Medicine
DX: R10.13 Epigastric pain (principal); F41.9 Anxiety disorder, unspecified
CPT/HCPCS: 36415; 80053; 80305; 81001; 81003; 83690; 85025; 85379; 96361; 96374; 96375; 99284; C9113; J2060

== ENCOUNTER 2020-11-17 19:58 | Emergency (ER) | payer OTHER, SELFPAY ==
[2020-11-17 20:20] VITALS: BP 143/98; PULSE 89; RESP 20; TEMP 36.4; O2SAT 98
--- NOTE | 2020-11-17 20:23 | DI.RAD.S_ITS ---
PROCEDURE: XR KNEE LT 3V INDICATIONS: bilat knee pain/redness no known injury TECHNIQUE: 3 views of the knee were acquired. COMPARISON: None. FINDINGS: Bones: No fractures or dislocations. No suspicious bony lesions. Soft tissues: No joint effusion. No suspicious soft tissue calcifications. IMPRESSION: No evidence acute bony abnormality of the left knee. If clinical suspicion and/or symptoms persist, further assessment with repeat plain films, or advanced imaging (e.g., CT, MRI, or bone scan) may be helpful for further assessment. Dictated by: Charlie Byrd M.D. on 11/17/2020 at 21:17 Approved by: Charlie Byrd M.D. on 11/17/2020 at 21:17
--- NOTE | 2020-11-17 20:23 | DI.RAD.S_ITS ---
PROCEDURE: XR KNEE RT 3V INDICATIONS: bilat knee pain/redness no known injury TECHNIQUE: 3 views of the knee were acquired. COMPARISON: None. FINDINGS: Bones: No fractures or dislocations. No suspicious bony lesions. Soft tissues: No joint effusion. No suspicious soft tissue calcifications. IMPRESSION: No evidence acute bony abnormality of the right knee. If clinical suspicion and/or symptoms persist, further assessment with repeat plain films, or advanced imaging (e.g., CT, MRI, or bone scan) may be helpful for further assessment. Dictated by: Charlie Byrd M.D. on 11/17/2020 at 21:17 Approved by: Charlie Byrd M.D. on 11/17/2020 at 21:18
--- NOTE | 2020-11-18 04:13 | ED_ITS ---
HPI - Extremity Injury (Lower) General Chief Complaint: Extremity Injury, Lower Stated Complaint: BILAT KNNE PAIN AND BURNING Time Seen by Provider: 11/17/20 20:18 Source: patient Mode of arrival: Ambulatory Limitations: no limitations History of Present Illness HPI Narrative: 25-year-old female nonsmoker with noncontributory medical history presents with her significant other and a chief complaint of many days of bilateral knee burning and aching. She denies any injury or trauma. She denies any history of the same. She denies any fever or chills nor nausea or vomiting. She denies any redness, warmth or swelling. She denies any numbness or tingling. She states that her knees seem to a, particularly more when walking, she states that she has been working very hard and preparing her home to move out. She has not really done much to help with his discomfort and is here for evaluation, to rule out any serious conditions Onset (ago): day(s) Severity: mild Relieving factors: rest Exacerbating factors: weight bearing, movement and palpation Associated symptoms: ambulatory Other symptoms: none Related Data Home Medications Medication Instructions Recorded Confirmed dextroamphetamine-amphetamine 20 mg PO DAILY 06/16/20 06/16/20 Previous Rx's Medication Instructions Recorded ketorolac 10 mg PO Q6H PRN #14 tab 06/14/20 lidocaine [Lidoderm] 1 patch TOP DAILY #15 each 06/14/20 ketorolac 10 mg PO Q6H PRN #14 tab 11/17/20 Allergies Allergy/AdvReac Type Severity Reaction Status Date / Time sulfamethoxazole AdvReac Nausea Verified 06/16/20 04:48 [From Bactrim] trimethoprim [From Bactrim] AdvReac Nausea Verified 06/16/20 04:48 Review of Systems Constitutional Constitutional: Denies chills, Denies fatigue, Denies fever(s), Denies frequent falls, Denies lethargy and Denies weakness Eyes Eyes: Denies change in vision, Denies eye discharge, Denies irritation and Denies loss of vision ENT Ears, Nose, Mouth, and Throat: Denies change in voice, Denies dizziness, Denies neck pain, Denies sore throat and Denies throat swelling Cardiovascular Cardiovascular: Denies chest pain, Denies irregular heart rhythm, Denies lightheadedness, Denies palpitations, Denies dyspnea, Denies dyspnea on exertion and Denies orthopnea Respiratory Respiratory: Denies cough, Denies dyspnea, Denies dyspnea on exertion and Denies wheezing Gastrointestinal Gastrointestinal: Denies abdominal pain, Denies change in bowel habits, Denies diarrhea, Denies nausea and Denies vomiting Musculoskeletal Musculoskeletal: Reports arthralgias, Denies neck pain and Denies numbness Integumentary/Breasts Skin/Breast: Denies pruritus, Denies erythema, Denies rash and Denies wounds Neurologic Neurologic: Denies behavioral changes, Denies confusion, Denies dizziness, Denies frequent falls, Denies loss of vision, Denies numbness and Denies weakness Psychiatric Psychiatric: Denies anxiety, Denies behavioral changes, Denies confusion, Denies depression, Denies homicidal ideation and Denies suicidal ideation Endocrine Endocrine: Denies fatigue, Denies flushing and Denies palpitations Hematologic/Lymphatic Hematologic/Lymphatic: Denies easy bruising Allergic/Immunologic Allergic/Immunologic: Denies urticaria, Denies throat swelling and Denies wheezing Patient History Medical History Anxiety Healthy adult Social History Smoking Status: Never smoker Smoking Status: Never smoker alcohol intake frequency: a few times a month Substance Use Type: does not use Exam Narrative Exam Narrative: GEN: AOx3 and in mild distress EYES: Pupils are equal, round, and reactive to light and accommodation. Extraoccular muscles are intact bilaterally. There is no subconjunctival hemorr tyrell or exudate. CHEST: Lungs are clear to auscultation bilaterally and free of wheezes, rales, or rhonchi. Heart rate is regular rhythm, there are no murmurs, clicks, rubs, or gallops. There is no chest wall tenderness. ABD: Abdomen is soft and nontender. There is no guarding or rebound. Bowel sounds are normal in all 4 quadrants. There is no mass or organomegaly. EXT: Bilateral knees with full, minimally painful active and passive range of motion. No deformity or obvious external manifestation of disease or illness. No effusion, erythema, warmth. No joint line tenderness, no ligamentous laxity. She states she has a burning-type sensation on both knees that runs finding adjacent to the patella.. SKIN: Warm, pink, and dry. No erythema or rash Initial Vital Signs Initial Vital Signs: Vital Signs Temperature 97.5 F L 11/17/20 20:20 Pulse Rate 89 11/17/20 20:20 Respiratory Rate 20 11/17/20 20:20 Blood Pressure 143/98 H 11/17/20 20:20 Pulse Oximetry 98 11/17/20 20:20 Course Orders Ordered: ED Orders 11/17/20 20:23 XR knee LT 3V Stat XR knee RT 3V Stat Vital Signs Vital signs: Vital Signs - 8 hr 11/17/20 20:20 Temperature 97.5 F L Pulse Rate 89 Respiratory Rate 20 Blood Pressure 143/98 H Pulse Oximetry 98 MDM - Extremity Injury (Lower) Imaging Data Extremity x-ray #1: Radiologist's Impression: Minerva Hamilton 25 F [address] [id number] ReportSigned Patient: Minerva Hamilton#: [id number]: 1995Acct:[id number]/Sex: 25 / FDate of Service: 11/17/20Loc: EDAccession Number: [id number] Procedure: XR knee RT 3V Ordering Provider: Geovany Galvan D.O. PROCEDURE: XR KNEE RT 3V INDICATIONS: bilat knee pain/redness no known injury TECHNIQUE: 3 views of the knee were acquired. COMPARISON: None. FINDINGS: Bones: No fractures or dislocations. No suspicious bony lesions. Soft tissues: No joint effusion. No suspicious soft tissue calcifications. IMPRESSION: No evidence acute bony abnormality of the right knee. If clinical suspicion and/or symptoms persist, further assessment with repeat plain films, or advanced imaging (e.g., CT, MRI, or bone scan) may be helpful for further assessment. Dictated by: Charlie Byrd M.D. on 11/17/2020 at 21:17 Approved by: Charlie Byrd M.D. on 11/17/2020 at 21:[address] [id number] ReportSigned Patient: Minerva Hamilton#: [id number]: 1995Acct:[id number]/Sex: 25 / FDate of Service: 11/17/20Loc: EDAccession Number: [id number] Procedure: XR knee LT 3V Ordering Provider: Geovany Galvan D.O. PROCEDURE: XR KNEE LT 3V INDICATIONS: bilat knee pain/redness no known injury TECHNIQUE: 3 views of the knee were acquired. COMPARISON: None. FINDINGS: Bones: No fractures or dislocations. No suspicious bony lesions. Soft tissues: No joint effusion. No suspicious soft tissue calcifications. IMPRESSION: No evidence acute bony abnormality of the left knee. If clinical suspicion and/or symptoms persist, further assessment with repeat plain films, or advanced imaging (e.g., CT, MRI, or bone scan) may be helpful for further assessment. Dictated by: Charlie Byrd M.D. on 11/17/2020 at 21:17 Approved by: Charlie Byrd M.D. on 11/17/2020 at 21:17 [facility] Narrative Medical decision making narrative: Patient ambulatory without difficulty and has very reassuring exam. Multiple diagnoses including septic arthritis, gouty arthritis considered but thought unlikely given lack of effusion, erythema or painful passive range of motion. Fracture and dislocation considered extremely unlikely given lack of trauma or findings on imaging. Patient admits to increased activity as of late and source of pain is most likely overuse and inflammatory in nature. Return precautions given and questions answered to her apparent satisfaction Discharge Plan Departure Patient Disposition: Home Clinical Impression: Acute bilateral knee pain Instructions: DI for Knee Pain Activity Restrictions/Additional Instructions: *You have been diagnosed with [acute bilateral knee pain. Very reassuring exam and x-rays] *What to do: *Take medications as directed: Prescription sent to [email or web address] at your request *Follow up with your primary care provider in 2-3 days, call for an appointment. Let them know you were seen in the Emergency Department and that we ask that you be seen in follow up *Return to ER if you should have any new, worsening or concerning symptoms Prescriptions: New ketorolac 10 mg tablet 10 mg PO Q6H PRN (Reason: pain) Qty: 14 RF: 0 No Action dextroamphetamine-amphetamine 20 mg PO DAILY RF: 0 ketorolac 10 mg tablet 10 mg PO Q6H PRN (Reason: pain) Qty: 14 RF: 0 lidocaine [Lidoderm] 5 % adhesive patch,medicated 1 patch TOP DAILY Qty: 15 RF: 0
== END 2020-11-17 22:41 | disposition home or self-care (01) ==
PROVIDERS: Emergency Provider Emergency Medicine
DX: M25.561 Pain in right knee (principal); M25.562 Pain in left knee
CPT/HCPCS: 73562; 99281; 99283